=== PATIENT | female | born 1980 | race Caucasian/White ===

== ENCOUNTER 2019-06-15 18:10 | Emergency (ER) | payer OTHER, SELFPAY ==
[2019-06-15 18:20] VITALS: BP 114/82; PULSE 68; RESP 12; TEMP 36.6; O2SAT 100
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
== END 2019-06-15 19:00 | disposition home or self-care (01) ==
PROVIDERS: Emergency Provider Emergency Medicine; Family Provider Family Medicine; PCP Family Medicine
DX: S16.1XXA Strain of muscle, fascia and tendon at neck level, initial encounter (principal); V43.52XA Car driver injured in collision with other type car in traffic accident, initial encounter
CPT/HCPCS: 99283

== ENCOUNTER → 2020-09-25 16:12 | Outpatient (CLI) | payer OTHER, SELFPAY ==
[2020-09-25] MEDS: COVID-19 VACC(MODERNA-1)/PF 100 MCG/0.5 ML VIAL IM (16:20)
== END ==
PROVIDERS: Visit Provider Internal Medicine
DX: Z23 Encounter for immunization (principal)
CPT/HCPCS: 0011A; 91301

== ENCOUNTER → 2020-10-21 07:50 | Outpatient (CLI) | payer OTHER, SELFPAY ==
[2020-10-21] MEDS: COVID-19 VACC #2, MRNA(MOD) 100 MCG/0.5 ML VIAL IM (07:57)
== END ==
PROVIDERS: Visit Provider Internal Medicine
DX: Z23 Encounter for immunization (principal)
CPT/HCPCS: 0012A; 91301

== ENCOUNTER → 2021-03-26 11:28 | Outpatient (CLI) | payer OTHER, SELFPAY ==
[2021-03-26 12:16] LABS: Add Manual Diff / Slide Review NO; Basophils Absolute Auto 0 /uL (0-100); Basophils Percent Auto 1.1 % (0-2); Eosinophils Absolute Auto 0 /uL (0-450); Eosinophils Percent Auto 0.3 % (2-4); Hematocrit 42.3 % (36-46); Hemoglobin 14.3 g/dL (12.0-16.0); Lymphocytes Absolute Auto 1100 /uL (1100-4500); Mean Corpuscular HGB Conc 33.9 % (30-36); Mean Corpuscular Hemoglobin 32.3 PG (26-34); Mean Corpuscular Volume 95.3 fL (80-100); Monocytes Absolute Auto 400 /uL (0-900); Monocytes Percent Auto 8.1 % (3-14); Neutrophils Absolute Auto 2800 /uL (1500-7000); Neutrophils Percent Auto 64.5 % (50-75); Platelet Count 193 X10^3/uL (150-400); Red Blood Cell Count 4.43 X10^6/uL (4.0-5.2); Red Cell Distribution Width 12.6 % (11.6-14.8); White Blood Cell Count 4.3 X10^3/uL (4.5-11.0)
[2021-03-26 13:10] LABS: Thyroid Stimulating Hormone 1.28 uIU/mL (0.47-4.68)
[2021-03-26 13:18] LABS: Ferritin 22 ng/mL (6-137)
== END ==
PROVIDERS: Family Provider Family Medicine; PCP Family Medicine; Referring Provider Family Medicine; Visit Provider Family Medicine
DX: R53.83 Other fatigue (principal)
CPT/HCPCS: 36415; 82728; 84443; 85025

== ENCOUNTER → 2022-01-24 12:47 | Outpatient (CLI) | payer OTHER, SELFPAY ==
[2022-01-24 14:39] LABS: Add Manual Diff / Slide Review NO; Basophils Absolute Auto 0 /uL (0-100); Basophils Percent Auto 0.9 % (0-2); Eosinophils Absolute Auto 0 /uL (0-450); Eosinophils Percent Auto 0.6 % (2-4); Hematocrit 39.7 % (36-46); Hemoglobin 13.8 g/dL (12.0-16.0); Lymphocytes Absolute Auto 1600 /uL (1100-4500); Lymphocytes Percent Auto 33.5 % (25-40); Mean Corpuscular HGB Conc 34.9 % (30-36); Mean Corpuscular Volume 91.9 fL (80-100); Monocytes Absolute Auto 300 /uL (0-900); Monocytes Percent Auto 7.4 % (3-14); Neutrophils Absolute Auto 2700 /uL (1500-7000); Neutrophils Percent Auto 57.6 % (50-75); Platelet Count 180 X10^3/uL (150-400); Red Blood Cell Count 4.32 X10^6/uL (4.0-5.2); Red Cell Distribution Width 12.4 % (11.6-14.8); White Blood Cell Count 4.7 X10^3/uL (4.5-11.0)
[2022-01-24 15:25] LABS: Ferritin 29 ng/mL (6-137)
== END ==
PROVIDERS: Family Provider Family Medicine; PCP Family Medicine; Referring Provider Family Medicine; Visit Provider Family Medicine
DX: D64.9 Anemia, unspecified (principal)
CPT/HCPCS: 36415; 82728; 85025

== ENCOUNTER → 2022-02-04 10:32 | Outpatient (CLI) | payer OTHER, SELFPAY ==
--- NOTE | 2022-02-04 | DI.MG.S_ITS ---
BILATERAL DIGITAL SCREENING MAMMOGRAM 3D/2D WITH CAD WITH AUGMENTATION: 02/04/2022 CLINICAL: Patient presents for routine screening. S/P bilateral augmentation. Baseline. No prior exams were available for comparison. The tissue of both breasts is heterogeneously dense. This may lower the sensitivity of mammography. Current study was also evaluated with a Computer Aided Detection (CAD) system. Bilateral breast implants are intact. No significant masses, calcifications, or other findings are seen in either breast. IMPRESSION: NEGATIVE There is no mammographic evidence of malignancy. A 1 year screening mammogram is recommended. This exam was interpreted at Station ID: [id number]. NOTE: For mammograms, a report in lay terms will be sent to the patient. Approximately 15% of breast malignancies will not be visualized mammographically. In the management of a palpable breast mass, a negative mammogram must not discourage biopsy of a clinically suspicious lesion. Electronically Signed By: Karolyn scott/lacy:02/04/2022 12:33:43 letter sent: Normal Exam ACR BI-RADS Category 1: Negative [id number]
== END ==
PROVIDERS: PCP Family Medicine; Referring Provider Family Medicine; Visit Provider Family Medicine
DX: Z12.31 Encounter for screening mammogram for malignant neoplasm of breast (principal); Z98.82 Breast implant status
CPT/HCPCS: 77063; 77067

== ENCOUNTER → 2022-10-19 09:28 | Outpatient (CLI) | payer OTHER, SELFPAY ==
[2022-10-19 12:01] LABS: Add Manual Diff / Slide Review NO; Basophils Absolute Auto 0 /uL (0-100); Eosinophils Absolute Auto 0 /uL (0-450); Eosinophils Percent Auto 0.8 % (2-4); Hematocrit 40.9 % (36-46); Hemoglobin 13.7 g/dL (12.0-16.0); Lymphocytes Absolute Auto 1300 /uL (1100-4500); Lymphocytes Percent Auto 27.8 % (25-40); Mean Corpuscular HGB Conc 33.4 % (30-36); Mean Corpuscular Hemoglobin 31.4 PG (26-34); Monocytes Absolute Auto 400 /uL (0-900); Monocytes Percent Auto 7.8 % (3-14); Neutrophils Absolute Auto 2900 /uL (1500-7000); Neutrophils Percent Auto 62.6 % (50-75); Platelet Count 217 X10^3/uL (150-400); Red Blood Cell Count 4.35 X10^6/uL (4.0-5.2); Red Cell Distribution Width 12.4 % (11.6-14.8); White Blood Cell Count 4.7 X10^3/uL (4.5-11.0)
[2022-10-19 13:13] LABS: Ferritin 29 ng/mL (6-137)
== END ==
PROVIDERS: Family Provider Family Medicine; PCP Family Medicine; Referring Provider Family Medicine; Visit Provider Family Medicine
DX: D64.9 Anemia, unspecified (principal)
CPT/HCPCS: 36415; 82728; 85025

== ENCOUNTER 2022-11-17 18:41 | Emergency (ER) | payer OTHER, SELFPAY ==
[2022-11-17] VITALS (20 sets, daily range): BP systolic 111–142; BP diastolic 72–84; PULSE 64–74; RESP 9–24; TEMP 36.9; O2SAT 98–100; BMI 21.9
--- NOTE | 2022-11-17 18:54 | DI.RAD.S_ITS ---
PROCEDURE: XR CHEST 1V INDICATIONS: chest pain TECHNIQUE: One view of the chest was acquired. COMPARISON: [facility], , CHEST 2 VIEW, 09/18/2007, 11:25. FINDINGS: Surgical changes and devices: None. Lungs and pleura: Lungs are clear. No pleural effusions or pneumothorax. Mediastinum: Mediastinal contours appear normal. Heart size is normal. Bones and chest wall: No suspicious bony lesions. Overlying soft tissues appear unremarkable. Rightward curvature of the thoracic spine. IMPRESSION: Rightward curvature of the thoracic spine. No acute abnormality Dictated by: Joss Brunson M.D. on 11/17/2022 at 19:15 Approved by: Joss Brunson M.D. on 11/17/2022 at 19:15
[2022-11-17 19:24] LABS: Add Manual Diff / Slide Review NO; Basophils Absolute Auto 100 /uL (0-100); Eosinophils Absolute Auto 100 /uL (0-450); Eosinophils Percent Auto 1.1 % (2-4); Hematocrit 41.4 % (36-46); Hemoglobin 14.2 g/dL (12.0-16.0); Lymphocytes Absolute Auto 2100 /uL (1100-4500); Lymphocytes Percent Auto 32.3 % (25-40); Mean Corpuscular HGB Conc 34.3 % (30-36); Mean Corpuscular Hemoglobin 31.4 PG (26-34); Mean Corpuscular Volume 91.6 fL (80-100); Monocytes Absolute Auto 500 /uL (0-900); Monocytes Percent Auto 7.2 % (3-14); Neutrophils Absolute Auto 3700 /uL (1500-7000); Neutrophils Percent Auto 58.4 % (50-75); Platelet Count 224 X10^3/uL (150-400); Red Blood Cell Count 4.52 X10^6/uL (4.0-5.2); Red Cell Distribution Width 12.4 % (11.6-14.8); White Blood Cell Count 6.4 X10^3/uL (4.5-11.0)
[2022-11-17 19:29] LABS: INR 1.1 (0.9-1.3); Prothrombin Time 12.2 SECONDS (10.1-12.7)
[2022-11-17] MEDS: ASPIRIN 81 MG CHEW TAB 324 MG PO (19:30)
[2022-11-17 19:31] LABS: PTT Partial Thromboplastin Tim 31 SECONDS (26-36)
[2022-11-17 19:36] LABS: Alanine Aminotransferase 28 IU/L (<35); Albumin 4.7 g/dL (3.5-5.0); Albumin Globulin Ratio 1.5 (1.0-2.8); Alkaline Phosphatase 76 U/L (38-126); Aspartate Aminotransferase 37 IU/L (14-36); BUN Creatinine Ratio 22.8 (6-22); Bilirubin Total 0.5 mg/dL (0.2-1.3); Blood Urea Nitrogen 18 mg/dL (7-17); Calcium 8.8 mg/dL (8.4-10.2); Carbon Dioxide 26 mmol/L (22-32); Chloride 101 mmol/L (98-107); Creatine Kinase 134 U/L (30-135); Estimated Glomerular Filt Rate > 60 mL/min (>60); Globulin 3.1 g/dL (1.7-4.1); Glucose 97 mg/dL (70-100); Lipase 186 U/L (23-300); Potassium 3.9 mmol/L (3.4-5.1); Sodium 136 mmol/L (137-145); Total Protein 7.8 g/dL (6.3-8.2)
--- NOTE | 2022-11-17 19:36 | ED.ARRPALP ---
HPI - Arrhythmia/Palpitations General Chief Complaint: Arrhythmia/Palpitations Stated Complaint: Palpitations Time Seen by Provider: 11/17/22 19:05 Source: patient Mode of arrival: Ambulatory History of Present Illness HPI narrative: 41F non smoker withno signficant medical history presents with a chief complaint of palpitations over the course of the day. She states that she feels multiple abnormal heartbeats per minute and when they happen they seemed to take her breath away. She denies any pain nor fever or chills. She is had no nausea, vomiting or diarrhea. She denies any new medications, dietary supplements or foods. She states that she is extremely healthy and has been training for a marathon. She denies any alcohol, nicotine or street drugs. She states that her symptoms started soon after a stressful experience at work earlier today. She denies any history of the same. She denies recent travel, injury, history of blood clot or cancer, she does not take control and denies any lower extremity pain or swelling Related Data Home Medications Medication Instructions Recorded Confirmed CA PANTOTHENATE/FOLIC ACID/VIT 1 tab PO Q DAY ##0 09/15/11 10/03/22 (MULTIVITAMIN) VITAMIN D (Vitamin D3) 1,000 unit PO QDAY ##0 02/09/12 10/03/22 vitamin B complex (B 1 tab PO DAILY 06/21/21 10/03/22 Complex-Vitamin B12 tablet) Previous Rx's Medication Instructions Recorded fluticasone propionate 50 See Rx Instructions .Route 05/03/21 mcg/actuation nasal .COMPLEX #16 grams spray,suspension tretinoin 0.025 % topical cream See Rx Instructions .Route 06/02/22 .COMPLEX #20 grams valacyclovir 1 gram tablet 1,000 mg PO Q8H #21 tabs 06/02/22 prednisone 20 mg tablet 20 mg PO DAILY #30 tabs 10/03/22 Allergies Allergy/AdvReac Type Severity Reaction Status Date / Time adhesive [ADHESIVE] Allergy Mild LOCAL RASH Verified 10/03/22 09:27 buspirone [BUSPIRONE] Allergy Mild NON STATED Verified 10/03/22 09:27 Sulfa (Sulfonamide Allergy Unknown Verified 10/03/22 09:27 Antibiotics) [SULFA (SULFONAMIDE ANTIBIOTICS)] Review of Systems Review of Systems Narrative: GENERAL: Denies chills, fatigue, malaise, fever, sweats. HEENT: Denies sinus pain, ear pain, sore throat, difficulty swallowing, dizziness. RESPIRATORY: Denies dyspnea, cough, wheezing, hemoptysis, sputum. CARDIOVASCULAR: See HPI GASTROINTESTINAL: Denies nausea, vomiting, abdominal pain, diarrhea, constipation, melena. : Denies dysuria, frequency, incontinence, hematuria, urinary retention. MUSCULOSKELETAL: denies weakness, joint pain, or bony pain SKIN: Denies rash, skin lesions, or other NEUROLOGIC: Denies weakness, headache, numbness, change in speech, confusion, seizures, incoordination. PSYCHIATRIC: No concerning psychosocial issues. 12 point review of systems is negative except for those stated above Patient History Medical History (Updated 11/17/22 @ 21:19 by Samy Maldonado DO) Anemia Anxiety Gastroesophageal reflux disease History of bilateral breast implants (11/18/16) Seronegative rheumatoid arthritis Social History (System 09/29/22 @ 12:31 by Lady Renetta Gann) Smoking Status: Never smoker Smoking Status: Never smoker Substance Use Type: does not use Exam Narrative Exam Narrative: GENERAL: [41] year old patient appears stated age. Well-developed patient, in mild distress. HEAD: Atraumatic. Normocephalic. EYES: Pupils equal round and reactive. Extraocular motions intact. No scleral icterus. No injection or drainage. ENT: Nose without bleeding, purulent drainage. Throat without erythema, tonsillar hypertrophy or exudate. Airway patent. NECK: Trachea midline. Non tender CARDIOVASCULAR: Regular rate and rhythm without murmurs, gallops, or rubs. RESPIRATORY: Clear to auscultation. Breath sounds equal bilaterally. No wheezes, rales, or rhonchi. GASTROINTESTINAL: Abdomen soft, non-tender, nondistended. EXTREMITIES: No edema or joint tenderness. BACK: Nontender without deformity or crepitance. No flank tenderness. NEURO: AOx3. SKIN: No rash or erythema of visible areas Initial Vital Signs Initial Vital Signs: Vital Signs Temperature 98.5 F 11/17/22 18:48 Pulse Rate 71 11/17/22 18:48 Respiratory Rate 16 11/17/22 18:48 Blood Pressure 142/83 H 11/17/22 18:48 Pulse Oximetry 99 11/17/22 18:48 Oxygen Delivery Method Room Air 11/17/22 18:48 Course Orders Ordered: ED Orders 11/17/22 18:54 XR chest 1V Stat EKG-12 Lead Stat 11/17/22 19:11 Complete Blood Count AUTO DIFF Stat Comprehensive Metabolic Panel Stat Lipase Stat Magnesium Stat PTT Partial Thromboplastin Miguel Stat Prothrombin Time INR Stat TSH w/ Reflex to FT4 Stat Troponin & CK Cardiac Panel Stat 11/17/22 19:30 COVID19 -Nasal RAPID Stat Discontinued Medications Aspirin (Aspirin 81 Mg Chew Tab) 324 mg PO NOW ONE Stop: 11/17/22 18:55 Last Admin: 11/17/22 19:30 Dose: 324 mg Documented By: AMU Vital Signs Vital signs: Vital Signs - 8 hr 11/17/22 18:48 11/17/22 20:03 11/17/22 20:05 Temperature 98.5 F Pulse Rate 71 70 67 Respiratory Rate 16 18 Blood Pressure 142/83 H Pulse Oximetry 99 100 99 Oxygen Delivery Method Room Air 11/17/22 20:10 11/17/22 20:15 11/17/22 20:20 Temperature Pulse Rate 70 69 68 Respiratory Rate 15 22 17 Blood Pressure Pulse Oximetry 99 99 99 Oxygen Delivery Method 11/17/22 20:25 11/17/22 20:30 11/17/22 20:30 Temperature Pulse Rate 65 66 Respiratory Rate 14 9 L Blood Pressure 111/73 Pulse Oximetry 98 99 Oxygen Delivery Method 11/17/22 20:35 11/17/22 20:40 11/17/22 20:45 Temperature Pulse Rate 65 64 67 Respiratory Rate 12 14 18 Blood Pressure Pulse Oximetry 98 99 98 Oxygen Delivery Method 11/17/22 20:50 11/17/22 20:55 11/17/22 21:00 Temperature Pulse Rate 65 71 Respiratory Rate 10 L 18 Blood Pressure 134/84 Pulse Oximetry 99 100 Oxygen Delivery Method 11/17/22 21:00 11/17/22 21:05 11/17/22 21:10 Temperature Pulse Rate 70 73 71 Respiratory Rate 24 20 Blood Pressure Pulse Oximetry 99 100 100 Oxygen Delivery Method 11/17/22 21:15 11/17/22 21:20 11/17/22 21:25 Temperature Pulse Rate 70 68 74 Respiratory Rate 23 Blood Pressure Pulse Oximetry 100 100 99 Oxygen Delivery Method 11/17/22 21:30 Temperature Pulse Rate 71 Respiratory Rate Blood Pressure 132/72 Pulse Oximetry 99 Oxygen Delivery Method MDM - Arrhythmia/Palpitations Lab Data 11/17/22 19:11 11/17/22 19:11 Labs: Lab Results 11/17/22 11/17/22 11/17/22 Range/Units 19:11 19:11 19:11 WBC 6.4 (4.5-11.0) X10^3/uL RBC 4.52 (4.0-5.2) X10^6/uL Hgb 14.2 (12.0-16.0) g/dL Hct 41.4 (36-46) % MCV 91.6 (80-100) fL MCH 31.4 (26-34) PG MCHC 34.3 (30-36) % RDW 12.4 (11.6-14.8) % Plt Count 224 (150-400) X10^3/uL Neut % (Auto) 58.4 (50-75) % Lymph % (Auto) 32.3 (25-40) % [place] % (Auto) 7.2 (3-14) % Eos % (Auto) 1.1 L (2-4) % Baso % (Auto) 1.0 (0-2) % Neut # (Auto) 3700 (7325-0463) /uL Lymph # (Auto) 2100 (2815-3862) /uL [place] # (Auto) 500 (0-900) /uL Eos # (Auto) 100 (0-450) /uL Baso # (Auto) 100 (0-100) /uL PT 12.2 (10.1-12.7) SECONDS INR 1.1 (0.9-1.3) APTT 31 (26-36) SECONDS Sodium 136 L (137-145) mmol/L Potassium 3.9 (3.4-5.1) mmol/L Chloride 101 (98-107) mmol/L Carbon Dioxide 26 (22-32) mmol/L BUN 18 H (7-17) mg/dL Creatinine 0.79 (0.52-1.04) mg/dL Estimated GFR > 60 (>60) mL/min BUN/Creatinine Ratio 22.8 H (6-22) Glucose 97 (70-100) mg/dL Calcium 8.8 (8.4-10.2) mg/dL Magnesium 2.0 (1.6-2.3) mg/dL Total Bilirubin 0.5 (0.2-1.3) mg/dL AST 37 H (14-36) IU/L ALT 28 (<35) IU/L Alkaline Phosphatase 76 (38-126) U/L Total Creatine Kinase 134 (30-135) U/L CK-MB (CK-2) 1.23 (<2.37) ng/mL CK-MB (CK-2) Rel Index 0.9 L (1.5-5.0) % Troponin I < 0.012 (0.01-0.034) ng/mL Total Protein 7.8 (6.3-8.2) g/dL Albumin 4.7 (3.5-5.0) g/dL Globulin 3.1 (1.7-4.1) g/dL Albumin/Globulin Ratio 1.5 (1.0-2.8) Lipase 186 (23-300) U/L TSH (0.47-4.68) uIU/mL SARS-CoV-2 (PCR) (Negative) 11/17/22 11/17/22 Range/Units 19:11 19:30 WBC (4.5-11.0) X10^3/uL RBC (4.0-5.2) X10^6/uL Hgb (12.0-16.0) g/dL Hct (36-46) % MCV (80-100) fL MCH (26-34) PG MCHC (30-36) % RDW (11.6-14.8) % Plt Count (150-400) X10^3/uL Neut % (Auto) (50-75) % Lymph % (Auto) (25-40) % [place] % (Auto) (3-14) % Eos % (Auto) (2-4) % Baso % (Auto) (0-2) % Neut # (Auto) (0363-3754) /uL Lymph # (Auto) (7807-9526) /uL [place] # (Auto) (0-900) /uL Eos # (Auto) (0-450) /uL Baso # (Auto) (0-100) /uL PT (10.1-12.7) SECONDS INR (0.9-1.3) APTT (26-36) SECONDS Sodium (137-145) mmol/L Potassium (3.4-5.1) mmol/L Chloride (98-107) mmol/L Carbon Dioxide (22-32) mmol/L BUN (7-17) mg/dL Creatinine (0.52-1.04) mg/dL Estimated GFR (>60) mL/min BUN/Creatinine Ratio (6-22) Glucose (70-100) mg/dL Calcium (8.4-10.2) mg/dL Magnesium (1.6-2.3) mg/dL Total Bilirubin (0.2-1.3) mg/dL AST (14-36) IU/L ALT (<35) IU/L Alkaline Phosphatase (38-126) U/L Total Creatine Kinase (30-135) U/L CK-MB (CK-2) (<2.37) ng/mL CK-MB (CK-2) Rel Index (1.5-5.0) % Troponin I (0.01-0.034) ng/mL Total Protein (6.3-8.2) g/dL Albumin (3.5-5.0) g/dL Globulin (1.7-4.1) g/dL Albumin/Globulin Ratio (1.0-2.8) Lipase (23-300) U/L TSH 3.58 (0.47-4.68) uIU/mL SARS-CoV-2 (PCR) Negative (Negative) MDM Narrative Medical decision making narrative: CC: 41-year-old female with palpitations Complicating co-morbidities: None known Data collected from: Patient Medical records reviewed: Prior notes reviewed in our EMR Differential considered, but not limited to: PAC, PVC, electrolyte abnormality versus other Exam documented above, pertinent findings include: Heart rate regular, occasional irregular beat. Lab Test results independently reviewed as above. Pertinent findings: No leukocytosis or left shift, no signs of anemia, electrolytes and renal function within normal, thyroid studies normal Independently reviewed EKG as above Discussion: Patient quite symptomatic from PACs, she is observed for quite some time while I was at the bedside and every time a PAC was noted she became symptomatic and returned to baseline in their absence. There is no obvious source she denies any change in diet or medications, labs are reassuring. She does state that they started soon after a stressful experience at work. Disposition: see below, along with detailed discharge instructions that have been reviewed with patient as well as indications for ED re-evaluation and additional outpatient follow up Discharge Plan Departure Patient Disposition: Home Clinical Impression: PAC (premature atrial contraction) Instructions: DI for Palpitations Activity Restrictions/Additional Instructions: *You have been diagnosed with [palpitations due to premature atrial contractions. As we discussed your history and physical exam as well as labs, EKG and cardiac monitoring are very reassuring otherwise and there is no evidence of electrolyte abnormality, anemia, thyroid abnormality or other underlying diagnosis that would require a specific or immediate intervention] *What to do: *Please continue to take your regular medications as directed. [ ] New medication prescriptions sent to your pharmacy: [ ] [ ] New medication written as a paper prescription [ ] No new medications given *Please follow up with your primary care provider in 2-3 days, call for an appointment. Let them know you were seen in the Emergency Department and that we ask that you be seen in follow up. We will electronically transmit a record of today's note if your PCP is in our system *If you do not have a primary care provider please contact the [facility] Resource line at [phone]. They will ask some questions about your medical history and help get you set up with a doctor in the community. *Return to Emergency Department if you should have any new, worsening or concerning symptoms, such as [fever greater than 101 F, shaking chills, worsening pain, persistent vomiting or other bothersome symptoms] Prescriptions: No Action vitamin B complex [B Complex-Vitamin B12] Tablet 1 tab PO DAILY prednisone 20 mg tablet 20 mg PO DAILY Qty: 30 0RF valacyclovir 1 gram tablet 1,000 mg PO Q8H Qty: 21 0RF CA PANTOTHENATE/FOLIC ACID/VIT (MULTIVITAMIN) 1 tab PO Q DAY Qty: 0 VITAMIN D (Vitamin D3) 1,000 unit PO QDAY Qty: 0 fluticasone propionate 50 mcg/actuation spray,suspension See Rx Instructions .ROUTE .COMPLEX Qty: 16 6RF Dose Instruction: instill 2 sprays into each nostril once daily if needed for allergies Rx Instructions: instill 2 sprays into each nostril once daily if needed for allergies tretinoin 0.025 % cream See Rx Instructions .ROUTE .COMPLEX Qty: 20 2RF Dose Instruction: apply to affected area twice a day Rx Instructions: apply to affected area twice a day Referrals: Huy Menjivar MD [Primary Care Provider] - Stand Alone Forms: Patient Portal/API
[2022-11-17 19:51] LABS: CKMB % Relative Index 0.9 % (1.5-5.0); Creatine Kinase MB 1.23 ng/mL (<2.37); HEMOLYSIS 20 (0-50)
[2022-11-17 19:59] LABS: Troponin I < 0.012 ng/mL (0.01-0.034)
[2022-11-17 20:12] LABS: COVID19 -Nasal RAPID Negative (Negative)
[2022-11-17 20:57] LABS: TSH w/ Reflex to FT4 3.58 uIU/mL (0.47-4.68)
== END 2022-11-17 21:46 | disposition home or self-care (01) ==
PROVIDERS: Emergency Provider Emergency Medicine; Family Provider Family Medicine; PCP Family Medicine
DX: I49.1 Atrial premature depolarization (principal); R00.2 Palpitations; Z20.822 Contact with and (suspected) exposure to COVID-19
CPT/HCPCS: 36415; 71045; 80053; 82550; 82553; 83690; 83735; 84443; 84484; 85025; 85610; 85730; 87635; 93005; 93010; 99284; C9803

== ENCOUNTER → 2022-11-21 17:05 | Outpatient (CLI) | payer OTHER, SELFPAY ==
[2022-11-21 18:11] LABS: Follicle Stimulating Hormone 6.74 mIU/mL; Luteinizing Hormone 5.28 mIU/mL
== END ==
PROVIDERS: Family Provider Family Medicine; PCP Family Medicine; Referring Provider Family Medicine; Visit Provider Family Medicine
DX: D64.9 Anemia, unspecified (principal); I49.1 Atrial premature depolarization
CPT/HCPCS: 36415; 83001; 83002

== ENCOUNTER → 2022-12-15 14:55 | Outpatient (CLI) | payer OTHER, SELFPAY | PROVIDERS: Family Provider Family Medicine; PCP Family Medicine; Referring Provider Family Medicine; Visit Provider Family Medicine | DX: I49.1 Atrial premature depolarization (principal); I49.3 Ventricular premature depolarization | CPT/HCPCS: 93246 ==

== ENCOUNTER → 2023-02-28 16:19 | Outpatient (CLI) | payer OTHER, SELFPAY ==
--- NOTE | 2023-02-28 | DI.MG.S_ITS ---
BILATERAL DIGITAL SCREENING MAMMOGRAM 3D/2D WITH CAD WITH AUGMENTATION: 02/28/2023 CLINICAL: Routine screening. Comparison is made to exam dated: 02/04/2022 mammogram - [facility]. Both breasts are heterogeneously dense, which may obscure small masses (category c / 51-75% glandular tissue). Current study was also evaluated with a Computer Aided Detection (CAD) system. Bilateral breast implants are intact. No significant masses, calcifications, or other findings are seen in either breast. There has been no significant interval change. IMPRESSION: NEGATIVE There is no mammographic evidence of malignancy. A 1 year screening mammogram is recommended. Based on the Tyrer Cuzick model (a risk assessment model) the patient's lifetime risk is 11.1% and her 10 year risk is 1.5%. According to the ACR, ACS, and NCCN guidelines, an annual breast MRI exam along with mammogram is recommended if the patient's lifetime risk is 20% or greater. This exam was interpreted at Station ID: [id number]. NOTE: For mammograms, a report in lay terms will be sent to the patient. Approximately 15% of breast malignancies will not be visualized mammographically. In the management of a palpable breast mass, a negative mammogram must not discourage biopsy of a clinically suspicious lesion. Electronically Signed By: Pastor danielson/lacy:03/01/2023 13:46:51 letter sent: Normal Exam ACR BI-RADS Category 1: Negative 3341F
== END ==
PROVIDERS: Family Provider Family Medicine; PCP Family Medicine; Referring Provider Family Medicine; Visit Provider Family Medicine
DX: Z12.31 Encounter for screening mammogram for malignant neoplasm of breast (principal)
CPT/HCPCS: 77063; 77067

== ENCOUNTER → 2023-09-21 15:50 | Outpatient (CLI) | payer SELFPAY ==
--- NOTE | 2023-09-21 15:53 | DI.RAD.S_ITS ---
PROCEDURE: XR WRIST RT MIN 3V INDICATIONS: right wrist pain TECHNIQUE: 4 views of the wrist were acquired. COMPARISON: None. FINDINGS: Bones: No fractures or dislocations. No suspicious bony lesions. Soft tissues: No suspicious soft tissue calcifications. IMPRESSION: No acute bony abnormality. If clinical symptoms persist or clinical suspicion for pathology is high, a repeat examination in 7-10 days, or advanced imaging such as CT or MRI is suggested for further evaluation. Dictated by: Charlie Rizvi M.D. on 09/21/2023 at 16:40 Approved by: Charlie Rizvi M.D. on 09/21/2023 at 16:43
== END ==
LOC: RAD 15:52
PROVIDERS: Family Provider Family Medicine; PCP Family Medicine; Referring Provider Physician Assistant; Visit Provider Physician Assistant
DX: M25.531 Pain in right wrist (principal); M06.9 Rheumatoid arthritis, unspecified
CPT/HCPCS: 73110

== ENCOUNTER → 2023-12-25 15:33 | Outpatient (CLI) | payer OTHER, SELFPAY ==
[2023-12-25 16:13] LABS: Appearance Urine UA SL CLOUDY; Bilirubin Urine UA NEGATIVE (NEGATIVE); Color Urine UA YELLOW; Glucose Urine UA NEGATIVE (Negative); Ketones Urine UA NEGATIVE (NEGATIVE); Leukocyte Esterase Urine UA 2+ (NEGATIVE); Nitrite Urine UA NEGATIVE (Negative); Occult Blood Urine UA 3+ (Negative); Protein Urine UA NEGATIVE (Negative); Specific Gravity Urine UA <=1.005 (1.000-1.035); Urobilinogen Urine UA 0.2 E.U./dL (0.2)
[2023-12-25 16:15] LABS: pH Urine UA 6.5 (4.5-8.0)
[2023-12-25 16:20] LABS: Bacteria Urine Many (>30); Culture Indicated Urine Cult Not Indicated; RBC Urine 1-5/HPF (0-5/HPF); Squamous Epithelial Cell Urine 0-1 /HPF (0-5/HPF); Urine Volume 10mL (spun); WBC Urine 5-10/HPF (0-5/HPF)
== END ==
PROVIDERS: Family Provider Family Medicine; PCP Family Medicine; Visit Provider Registered Nurse
DX: R39.9 Unspecified symptoms and signs involving the genitourinary system (principal)
CPT/HCPCS: 81001; 87077; 87086; 87186

== ENCOUNTER → 2024-03-08 13:00 | Outpatient (CLI) | payer OTHER, SELFPAY ==
--- NOTE | 2024-03-08 13:02 | DI.MG.S_ITS ---
BILATERAL DIGITAL SCREENING MAMMOGRAM 3D/2D WITH CAD WITH AUGMENTATION: 03/08/2024 CLINICAL: Routine screening. Comparison is made to exams dated: 02/28/2023 mammogram and 02/04/2022 mammogram - [facility]. Both breasts are heterogeneously dense, which may obscure small masses (category c / 51-75% glandular tissue). Current study was also evaluated with a Computer Aided Detection (CAD) system. Bilateral breast implants are intact. No significant masses, calcifications, or other findings are seen in either breast. There has been no significant interval change. IMPRESSION: NEGATIVE There is no mammographic evidence of malignancy. A 1 year screening mammogram is recommended. Based on the Tyrer Cuzick model (a risk assessment model) the patient's lifetime risk is 11.1% and her 10 year risk is 1.6%. According to the ACR, ACS, and NCCN guidelines, an annual breast MRI exam along with mammogram is recommended if the patient's lifetime risk is 20% or greater. This exam was interpreted at Station ID: [id number]. NOTE: For mammograms, a report in lay terms will be sent to the patient. Approximately 15% of breast malignancies will not be visualized mammographically. In the management of a palpable breast mass, a negative mammogram must not discourage biopsy of a clinically suspicious lesion. Electronically Signed By: Ciro euceda/lacy:03/08/2024 16:27:44 letter sent: Normal Exam ACR BI-RADS Category 1: Negative [id number]
== END ==
PROVIDERS: Family Provider Family Medicine; PCP Family Medicine; Referring Provider Family Medicine; Visit Provider Family Medicine
DX: Z12.31 Encounter for screening mammogram for malignant neoplasm of breast (principal); R92.333 Mammographic heterogeneous density, bilateral breasts
CPT/HCPCS: 77063; 77067

== ENCOUNTER → 2025-04-18 17:06 | Outpatient (CLI) | payer OTHER, SELFPAY ==
--- NOTE | 2025-04-18 17:08 | DI.MG.S_ITS ---
MM screening mammo implant BI: 04/18/2025. BI-RADS: 2 CLINICAL: 44-year old female for bilateral screening mammogram. Tyrer-Cuzick lifetime risk of 9.0%. No personal or first-degree family history of breast cancer. The patient has bilateral implants. PRIOR EXAMS 03/08/2024, 02/28/2023, 02/04/2022. MAMMOGRAPHY TECHNIQUE: 2D and 3D (tomosynthesis) digital mammographic views obtained, with additional images as needed for full coverage. Current study was also evaluated with a Computer Aided Detection (CAD) system. DENSITY C. The breasts are heterogeneously dense, which may obscure small masses. IMPLANTS Breast implants present. MAMMOGRAPHY FINDINGS Bilateral: There are no suspicious masses, calcifications, or other findings in the breast. IMPRESSION: * No evidence of malignancy with benign findings. RECOMMENDATIONS Bilateral * Annual screening mammography. OVERALL ASSESSMENT CATEGORY BI-RADS-2: Benign. The [employer] recommends annual screening mammography beginning at age 40 for women with average risk of breast cancer. ELECTRONICALLY SIGNED: Dania Vera M.D. on 04/19/2025 at 06:57:33 PM PT Interpreting Station ID: [id number]
== END ==
PROVIDERS: Family Provider Family Medicine; PCP Family Medicine; Referring Provider Family Medicine; Visit Provider Family Medicine
DX: Z12.31 Encounter for screening mammogram for malignant neoplasm of breast (principal); R92.333 Mammographic heterogeneous density, bilateral breasts; Z98.82 Breast implant status
CPT/HCPCS: 77063; 77067

== ENCOUNTER → 2025-07-24 16:46 | Outpatient (CLI) | payer OTHER, SELFPAY ==
--- NOTE | 2025-07-24 16:49 | DI.RAD.S_ITS ---
PROCEDURE: XR KUB INDICATIONS: Kidney stone seen on US at [facility] Imaging TECHNIQUE: One view of the abdomen acquired. COMPARISON: Outside Film, US, US RENAL COMPLETE, 07/11/2025, 7:30. FINDINGS: Surgical changes and devices: None. Bowel: Bowel gas pattern is normal. Soft tissues: No suspicious abdominal calcifications. Visualized solid organ contours appear normal in size. Suspected right renal calcification as seen with radiographs. Bones: No suspicious bony lesions. IMPRESSION: No acute abnormality. Dictated by: Prerna Smith M.D. on 07/28/2025 at 18:34 Approved by: Prerna Smith M.D. on 07/28/2025 at 18:36
== END ==
PROVIDERS: Family Provider Family Medicine; PCP Family Medicine; Referring Provider Physician Assistant; Visit Provider Physician Assistant
DX: N20.0 Calculus of kidney (principal); N21.0 Calculus in bladder
CPT/HCPCS: 74018